=== PATIENT | female | born 1965 | race Caucasian/White ===

== ENCOUNTER 2017-12-07 21:07 | Inpatient (IN) | payer OTHER ==
[~2017-12-07] VITALS: Ht 165.1 cm; Wt 70.8 kg
[2017-12-07 20:00] VITALS: BP 111/54
[~2017-12-07 21:07] MED LIST: NORCO 5-325 TA1 EAC1 PO; NORCO 5-325 TA1 EACH PO; ZOFRAN ODT4 MG PO
[2017-12-07 21:09] VITALS: BP 167/85
[2017-12-07 21:40] LABS: ABSOLUTE BASOPHILS 0.1 thou/uL (0.0-0.2); ABSOLUTE EOSINOPHILS 0.3 thou/uL (0.0-0.7); ABSOLUTE LYMPHOCYTES 2.8 thou/uL (0.8-5.3); ABSOLUTE MONOCYTES 0.9 thou/uL (0.0-1.2); ABSOLUTE NEUTROPHILS 7.8 thou/uL (1.6-8.1); BASOPHILS 0.7 %; EOSINOPHILS 2.2 %; HEMATOCRIT 43.2 % (37.0-47.0); HEMOGLOBIN 14.2 gm/dL (12.0-15.0); LYMPHOCYTES 23.5 %; MCH 27.6 pg (26.0-34.0); MCHC 32.9 g/dL (28.0-37.0); MCV 83.7 fL (80.0-100.0); MONOCYTES 7.3 %; MPV 9.2 fl. (7.2-11.1); NUCLEATED RBCS 0 /100WBC; PLATELET COUNT* 427 thou/uL (150-400); POLYS 66.3 %; RBC 5.16 mil/uL (4.20-5.00); RDW-CV 15.8 % (10.5-14.5); WBC 11.7 thou/uL (4.0-11.0)
[2017-12-07 21:50] LABS: ANION GAP 9 mmol/L (7-16); BUN 11 mg/dL (7-18); CHLORIDE 106 mmol/L (98-107); CO2 25 mmol/L (21-32); CREATININE 0.7 mg/dL (0.6-1.3); GLUCOSE 102 mg/dL (70-99); POTASSIUM 3.5 mmol/L (3.5-5.1); SODIUM 140 mmol/L (136-145)
[2017-12-07 21:51] LABS: INR 1.1; PROTIME 10.4 Seconds (9.20-11.50)
[2017-12-07 21:56] LABS: ALBUMIN 3.6 g/dL (3.4-5.0); ALKALINE PHOSPHATASE 84 U/L (46-116); LIPASE 115 U/L (73-393); SGOT 15 U/L (15-37); SGPT 19 U/L (30-65); TOTAL BILIRUBIN 0.2 mg/dL (<0.1-1.0); TOTAL PROTEIN 7.3 g/dL (6.4-8.2); TROPONIN-I LEVEL <0.06 ng/mL (<0.06)
[2017-12-08 00:57] LABS: HEMATOCRIT 42.2 % (37.0-47.0); HEMOGLOBIN 13.7 gm/dL (12.0-15.0)
[2017-12-08 03:43] VITALS: BP 103/54
[2017-12-08 05:47] LABS: HEMATOCRIT 40.6 % (37.0-47.0); HEMOGLOBIN 13.3 gm/dL (12.0-15.0)
[2017-12-08 09:31] VITALS: BP 98/63
[2017-12-08 09:52] VITALS: BP 109/58
[2017-12-08 14:31] VITALS: BP 109/58
[2017-12-08 16:11] VITALS: BP 129/67
[2017-12-08 16:52] VITALS: BP 113/56
--- NOTE | 2017-12-08 17:28 | EKG ---
[place] [address] ELECTROCARDIOGRAM REPORT Name: JAYESH HERRERA Room: [address] ADM IN .R.#: [id number] Admission: 12/07/17 Attend Phys: Ra Victor Discharge: Date of : 61 Report #: [id number] THIS REPORT FOR: //name// [facility] ED Test Date: 2017-12-07 Test Time: 21:28:11 Pat Name: JAYESH HERRERA Department: Room: [facility] Gender: Market Gardener: WILLIE Green : 1965 Requested By: Sherita Dolan Order Number: [id number] MD: Oc Eisenberg Measurements Intervals [place] Rate: 92 P: 67 MD: 178 QRS: 57 QRSD: 72 T: 52 QT: 364 QTc: 451 Interpretive Statements Sinus rhythm Compared to ECG 06/18/2017 18:36:24 First degree AV block no longer present Electronically Signed On 12-08-2017 17:28:43 PLANT CYTOLOGIST by Oc Eisenberg [email or web address] <ELECTRONICALLY SIGNED> By: Oc Eisenberg MD, [facility] 12/08/17 1728 27 27 Oc Eisenberg MD, FACC /EPI
[2017-12-09 00:07] VITALS: BP 109/54
[2017-12-09 04:45] LABS: ABSOLUTE BASOPHILS 0.1 thou/uL (0.0-0.2); ABSOLUTE EOSINOPHILS 0.4 thou/uL (0.0-0.7); ABSOLUTE LYMPHOCYTES 3.1 thou/uL (0.8-5.3); ABSOLUTE MONOCYTES 0.7 thou/uL (0.0-1.2); ABSOLUTE NEUTROPHILS 6.6 thou/uL (1.6-8.1); BASOPHILS 1.2 %; EOSINOPHILS 3.7 %; HEMATOCRIT 40.4 % (37.0-47.0); LYMPHOCYTES 27.9 %; MCH 27.3 pg (26.0-34.0); MCHC 32.3 g/dL (28.0-37.0); MCV 84.6 fL (80.0-100.0); MONOCYTES 6.8 %; MPV 9.9 fl. (7.2-11.1); NUCLEATED RBCS 0 /100WBC; PLATELET COUNT* 400 thou/uL (150-400); POLYS 60.4 %; RBC 4.77 mil/uL (4.20-5.00); RDW-CV 15.7 % (10.5-14.5); WBC 10.9 thou/uL (4.0-11.0)
[2017-12-09 04:47] LABS: CALCIUM 8.7 mg/dL (8.5-10.1); CREATININE 0.7 mg/dL (0.6-1.3); POTASSIUM 3.8 mmol/L (3.5-5.1)
[2017-12-09 08:04] VITALS: BP 111/55
[2017-12-09 10:59] VITALS: BP 111/55
[2017-12-09] MEDS ORDERED: PROTONIX40 M1 PO (11:08)
[2017-12-09] MEDS ORDERED: TYLENOL325 MG PO (11:08)
[2017-12-09] MEDS ORDERED: COLACE100 MG PO (11:09)
--- NOTE | 2017-12-12 10:00 | CON ---
[address] [address] CONSULTATION Name: JAYESH HERRERA Room: [address] IN M.R.#: [id number] Admission: 12/07/17 Attend Phys: Ra Victor Discharge: 12/09/17 Date of : 61 Report #: [id number] THIS REPORT FOR: //name// CC: BRIE physician/PCP Pilo Daniel DATE OF SERVICE: 12/09/2017 HISTORY OF PRESENT ILLNESS: The patient is a 52-year-old female patient with history of smoking for almost 35 years. She smokes 10 cigarettes per day. She does not carry the diagnosis of COPD. She is not on any oxygen on inhalers at home. In fact, she is not on any medication at home. On Tuesday 2 days ago, she coughed up some blood and she went to the bathroom and she coughed up more blood, fresh looking according to her. When she came into the ER, she was evaluated for possible GI bleed, she was seen by GI and EGD did not show source of bleeding. She denied shortness of breath or wheezes. She denied any nasal discharge or obstruction. She denied any previous episodes of hemoptysis. She denied any nasal discharge or epistaxis. She denied any sick contact. She denied any bleeding from any other orifice. She denied taking any aspirin or any blood thinners at home. She saw the blood on Tuesday. Yesterday, she had no hemoptysis or bleeding at all. Today, this morning after breathing treatment, she coughed up blood-colored sputum in a cup, looks old and dry. When I saw it, she actually kept it in a cup at the bedside. She denied any fever or any diagnosis of lung disease. ALLERGIES: CODEINE, PENICILLIN, AND BEE STINGS. HOME MEDICATIONS: She is not on any home medication. PAST MEDICAL HISTORY: She does not have chronic medical history or medical condition. PAST SURGICAL HISTORY: Surgeries in the arm, rotator cuff, neck pain and . SOCIAL HISTORY: Does not drink alcohol excessively. She smokes half a pack per day for almost 35 years. FAMILY HISTORY: Reviewed with the patient, noncontributory. No similar cases. REVIEW OF SYSTEMS: She has no fever, no chills, no visual changes, no bleeding from any orifice, no ear pain, no dysphagia, no dysarthria, no nausea, no vomiting, no change in mood. The rest of the review [place] [address] CONSULTATION Name: JAYESH HERRERA Room: [address]#: [id number] Admission: 12/07/17 Attend Phys: Ra Victor Discharge: 12/09/17 Date of : 61 Report #: [id number] PHYSICAL EXAMINATION: VITAL SIGNS: On examination, she is on room air with saturation more than 90%, blood pressure 111/55, breathing 16 times a minute, pulse rate of 68, temperature 36.7. GENERAL: Awake, alert, oriented, not in pain, not in distress. HEENT: Head: Normocephalic, atraumatic. Pupils are equal, reactive to light. Extraocular movements are intact. NECK: Supple. No palpable lymph nodes. No palpable thyroid. Trachea is central. No postnasal drip and examination of the airway shows Mallampati of 2. CHEST: Good air movement bilaterally. No wheezes, no crackles. No tenderness. HEART: S1, S2. No murmur, no gallop. ABDOMEN: Benign, soft, lax, nontender. EXTREMITIES: Lower extremities, no edema, no calf tenderness. SKIN: Normal for age and race, no rash. PSYCHIATRIC: Mood and affect appropriate, good insight and judgment. NEUROLOGIC: Moving 4 extremities spontaneously. No focal weakness. LABORATORY DATA: Her hemoglobin was 13 today, white blood count 10.9, platelets 400, INR of 1.1, creatinine of 0.7, potassium 3.8. Her chest x-ray was unremarkable. CT of the chest did not show PE, showed some evidence of pneumonitis in the right apical lobe with some bi-apical scarring. No definite consolidation. IMPRESSION: 1. Hemoptysis. 2. Pneumonia. 3. Pulmonary infiltrate. 4. Suspected gastrointestinal bleed. The patient is clinically improving. No further episodes of hemoptysis. She has no shortness of breath. She has no PE, but she has pneumonia on CT scan. She is asking to go home. I did recommend for her to watch her in the hospital for another day or 2 to make sure that her symptoms are stable. Actually, she chose to watch herself at home and if her symptoms recur, she will come back. I would recommend treating her with antibiotics for the pneumonia and 1 week course of steroids with PPI to protect her stomach. Again, she chose to go home and monitor herself and she said if she has any further episodes, she will come back to the hospital. I mentioned to her she needs a followup CT scan in 8-10 weeks from now to make sure that the infiltrates in her lungs resolve[place] [address] CONSULTATION Name: GABBY HERRERAEDWIN Dykes Room: [address]#: [id number] Admission: 12/07/17 Attend Phys: Ra Victor Discharge: 12/09/17 Date of : 61 Report #: [id number] Thank you for the consult. <ELECTRONICALLY SIGNED> By: Monique Jackson MD 12/12/17 1000 0937 1021Dmagno Jackson MD /nt
--- NOTE | 2017-12-28 16:13 | CON ---
[address] [address] CONSULTATION Name: GABBY HERRERAEDWIN Dykes Room: [address] IN .R.#: [id number] Admission: 12/07/17 Attend Phys: Ra Victor Discharge: 12/09/17 Date of : 61 Report #: [id number] THIS REPORT FOR: //name// CC: BRIE physician/PCP Pilo Daniel DATE OF SERVICE: 12/08/2017 REASON FOR CONSULTATION: Upper GI bleed. HISTORY OF PRESENT ILLNESS: This is a 52-year-old female who apparently is pretty healthy and does not take any regular meds at home. The patient reports that she felt nauseous and was vomiting and she saw blood in her emesis. She initially discounted the event, but since reoccurred, this prompted her to come back to the Emergency Room. The patient denies any melena or hematochezia. Her last bowel movement was yesterday, which was normal. She also denies any chronic use of NSAIDs. PAST SURGICAL HISTORY: Significant for history of rotator cuff surgery, , arm surgery. ALLERGIES: Significant to CODEINE AND PENICILLIN. MEDICATIONS: Please refer to hospital MAR. SOCIAL HISTORY: The patient smokes cigarettes and reports that she smoked half a pack of cigarette per day. She denies any alcohol use. FAMILY HISTORY: Negative for GI malignancy. PHYSICAL EXAMINATION: VITAL SIGNS: Reveals blood pressure of 109/58, respirations 14, pulse 78, temperature 98. LUNGS: Clear. CARDIOVASCULAR: Regular. ABDOMEN: Soft, nontender, nondistended. Bowel sounds are positive. LABORATORY DATA: Reveal sodium of 140, potassium 3.5, BUN is 11, creatinine 0.7, glucose 102. Liver function tests all within normal limits. INR is 1.1. WBC is 11.7 with hemoglobin of 13.3 and platelets of 427. IMAGING: Portable chest x-ray was obtained, which appeared normal. ASSESSMENT AND PLAN: The patient with acute upper gastrointestinal bleed with normal hemoglobin. We will go ahead and perform [place] [address] CONSULTATION Name: JAYESH HERRERA Room: [address] [facility].#: [id number] Admission: 12/07/17 Attend Phys: Ra Victor Discharge: 12/09/17 Date of : 61 Report #: [id number] further recommendation once the scope is performed. The patient is agreeable with plan. <ELECTRONICALLY SIGNED> By: Madelyn Bonner MD 12/28/17 1613 1517 2257Madelyn Bonner MD /nt
== END 2017-12-09 11:50 | disposition home or self-care (01) | DRG 178 ==
LOC: M.ERS 21:07 → M.ORTHSURG 22:23 → M.TBA-ER 22:23 → M.2W 12-08 10:10 → M.ORTHSURG 12-08 13:58
PROVIDERS: Emergency Medicine; Internal Medicine; ADMIT Internal Medicine
PROC: 0DJ08ZZ Inspection of Upper Intestinal Tract, Via Natural or Artificial Opening Endoscopic (ICD-10-PCS; principal; 2017-12-08)
DX: J15.6 Pneumonia due to other Gram-negative bacteria (principal); R04.2 Hemoptysis; K44.9 Diaphragmatic hernia without obstruction or gangrene; F17.210 Nicotine dependence, cigarettes, uncomplicated; Z88.6 Allergy status to analgesic agent; Z88.0 Allergy status to penicillin; Z91.030 Bee allergy status; Z71.6 Tobacco abuse counseling

== ENCOUNTER 2018-05-03 19:02 | Emergency (ER) | payer OTHER ==
[~2018-05-03] VITALS: Ht 157.5 cm; Wt 69.0 kg
[~2018-05-03 19:02] MED LIST changes: +COLACE100 MG PO; +PROTONIX40 M1 PO; +TYLENOL325 MG PO
[2018-05-03] MEDS ORDERED: TRAMADOL 50 MG50 MG PO (19:23)
[2018-05-03] MEDS ORDERED: IBUPROFEN 600600 M1 PO (19:23)
[2018-05-03] MEDS ORDERED: CLEOCIN HCL150 MG PO (19:23)
[2018-05-03 19:32] VITALS: BP 139/80
== END 2018-05-03 19:54 | disposition home or self-care (01) ==
LOC: M.ERS 19:02
DX: K04.7 Periapical abscess without sinus (principal); F17.210 Nicotine dependence, cigarettes, uncomplicated; Z98.890 Other specified postprocedural states; Z91.030 Bee allergy status; Z88.5 Allergy status to narcotic agent; Z88.0 Allergy status to penicillin

== ENCOUNTER 2019-08-06 11:40 | Emergency (ER) | payer BC ==
[~2019-08-06] VITALS: Ht 165.1 cm; Wt 63.5 kg
[~2019-08-06 11:40] MED LIST changes: +CLEOCIN HCL150 MG PO; +IBUPROFEN 600600 M1 PO; +TRAMADOL 50 MG50 MG PO
[2019-08-06 12:05] LABS: ABSOLUTE BASOPHILS 0.1 thou/uL (0.0-0.2); ABSOLUTE EOSINOPHILS 0.2 thou/uL (0.0-0.7); ABSOLUTE LYMPHOCYTES 2.4 thou/uL (0.8-5.3); ABSOLUTE MONOCYTES 0.6 thou/uL (0.0-1.2); ABSOLUTE NEUTROPHILS 5.6 thou/uL (1.6-8.1); BASOPHILS 1.2 %; EOSINOPHILS 2.6 %; HEMATOCRIT 46.3 % (37.0-47.0); HEMOGLOBIN 15.2 gm/dL (12.0-15.0); LYMPHOCYTES 26.7 %; MCH 26.8 pg (26.0-34.0); MCHC 32.7 g/dL (28.0-37.0); MCV 81.9 fL (80.0-100.0); MONOCYTES 7.2 %; NUCLEATED RBCS 0 /100WBC; PLATELET COUNT* 475 thou/uL (150-400); POLYS 62.3 %; RBC 5.65 mil/uL (4.20-5.00); RDW-CV 17.1 % (10.5-14.5)
[2019-08-06 12:15] LABS: BE -0.8 mmol/L (-2 to +3); PCO2 30.4 mmHg (35.0-45.0)
[2019-08-06 12:15] LABS: ANION GAP 9 mmol/L (7-16); BUN 19 mg/dL (7-18); CALCIUM 8.7 mg/dL (8.5-10.1); CHLORIDE 106 mmol/L (98-107); CO2 23 mmol/L (21-32); CREATININE 0.8 mg/dL (0.6-1.3); GLUCOSE 80 mg/dL (70-99); POTASSIUM 4.1 mmol/L (3.5-5.1); SODIUM 138 mmol/L (136-145)
[2019-08-06 12:22] LABS: PO2 < 23.5 mmHg (75.0-100.0)
[2019-08-06 12:30] LABS: ALBUMIN 3.2 g/dL (3.4-5.0); ALKALINE PHOSPHATASE 88 U/L (46-116); LIPASE 154 U/L (73-393); MAGNESIUM 1.8 mg/dL (1.8-2.4); NT-PRO BRAIN NAT PEPTIDE 85 pg/mL (<300); SGOT 13 U/L (15-37); SGPT 21 U/L (30-65); TOTAL BILIRUBIN 0.1 mg/dL (<0.1-1.0); TOTAL PROTEIN 6.9 g/dL (6.4-8.2); TROPONIN-I LEVEL <0.06 ng/mL (<0.06)
[2019-08-06] MEDS ORDERED: VENTOLIN HFA 1818 GM INH (13:20)
[2019-08-06] MEDS ORDERED: AZITHROMYCIN 2250 MG PO (13:20)
[2019-08-06] MEDS ORDERED: MEDROL DOSPAK21 TA1 PO (13:20)
[2019-08-06 13:30] VITALS: BP 108/54
--- NOTE | 2019-08-06 15:58 | EKG ---
[place] [address] ELECTROCARDIOGRAM REPORT Name: JAYESH HERRERA Room: [facility]#: [id number] Admission: 08/06/19 Attend Phys: Discharge: 08/06/19 Date of : 61 Report #: [id number] THIS REPORT FOR: //name// 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
--- NOTE | 2019-08-06 15:58 | EKG ---
[place] [address] ELECTROCARDIOGRAM REPORT Name: JAYESH HERRERA Room: [facility]#: [id number] Admission: 08/06/19 Attend Phys: Discharge: 08/06/19 Date of : 61 Report #: [id number] THIS REPORT FOR: //name// [facility] ED Test Date: 2019-08-06 Test Time: 12:41:22 Pat Name: JAYESH HERRERA Department: Room: Gender: F Advertising Solicitor: FCO : 1965 Requested By: Darryl Morales Order Number: [id number] MD: Grover Wong Measurements Intervals [place] Rate: 86 P: 74 [place]: 189 QRS: 61 QRSD: 71 T: 43 QT: 369 QTc: 442 Interpretive Statements Sinus rhythm Baseline wander in lead(s) V5,V6 Compared to ECG 12/07/2017 21:28:11 No significant changes Electronically Signed On 08-06-2019 15:58:23 CDT by Grover Wong [email or web address] <ELECTRONICALLY SIGNED> By: Grover Wong MD, [facility] 08/06/19 1558 1241 1241 Grover Wong MD, FACC /EPI
== END 2019-08-06 13:34 | disposition home or self-care (01) ==
LOC: M.ERS 11:40
PROVIDERS: Emergency Medicine
DX: J44.9 Chronic obstructive pulmonary disease, unspecified (principal); F17.210 Nicotine dependence, cigarettes, uncomplicated; Z91.030 Bee allergy status; Z88.5 Allergy status to narcotic agent; Z88.0 Allergy status to penicillin; Z98.890 Other specified postprocedural states

== ENCOUNTER 2019-12-10 13:19 | Emergency (ER) | payer BC ==
[~2019-12-10] VITALS: Ht 165.1 cm; Wt 63.5 kg
[~2019-12-10 13:19] MED LIST changes: +AZITHROMYCIN 2250 MG PO; +MEDROL DOSPAK21 TA1 PO; +VENTOLIN HFA 1818 GM INH
[2019-12-10 14:17] LABS: ABSOLUTE BASOPHILS 0.2 thou/uL (0.0-0.2); ABSOLUTE EOSINOPHILS 0.2 thou/uL (0.0-0.7); ABSOLUTE LYMPHOCYTES 2.9 thou/uL (0.8-5.3); ABSOLUTE MONOCYTES 1.1 thou/uL (0.0-1.2); ABSOLUTE NEUTROPHILS 10.1 thou/uL (1.6-8.1); BASOPHILS 1.2 %; EOSINOPHILS 1.6 %; HEMOGLOBIN 17.5 gm/dL (12.0-15.0); LYMPHOCYTES 19.8 %; MCH 27.2 pg (26.0-34.0); MCHC 33.6 g/dL (28.0-37.0); MCV 80.9 fL (80.0-100.0); MONOCYTES 7.6 %; MPV 8.9 fl. (7.2-11.1); NUCLEATED RBCS 0 /100WBC; PLATELET COUNT* 593 thou/uL (150-400); POLYS 69.8 %; RBC 6.43 mil/uL (4.20-5.00); RDW-CV 16.8 % (10.5-14.5); WBC 14.5 thou/uL (4.0-11.0)
[2019-12-10 14:20] LABS: URINE BILIRUBIN NEGATIVE (Negative); URINE BLOOD TRACE (Negative); URINE CLARITY CLEAR; URINE COLOR YELLOW; URINE GLUCOSE-RANDOM NEGATIVE (Negative); URINE KETONES NEGATIVE (Negative); URINE LEUKOCYTES-REFLEX NEGATIVE (Negative); URINE NITRITE-REFLEX NEGATIVE (Negative); URINE PROTEIN NEGATIVE (Negative); URINE SPECIFIC GRAVITY 1.025 (1.005-1.030); URINE UROBILINOGEN 0.2 E.U./dl (0.2-1.0)
[2019-12-10 14:27] LABS: CALCIUM 9.4 mg/dL (8.5-10.1); CREATININE 0.9 mg/dL (0.6-1.3); POTASSIUM 4.9 mmol/L (3.5-5.1)
[2019-12-10 14:41] LABS: ALBUMIN 3.7 g/dL (3.4-5.0); TOTAL BILIRUBIN 0.4 mg/dL (<0.1-1.0); TOTAL PROTEIN 8.6 g/dL (6.4-8.2)
[2019-12-10] MEDS ORDERED: ONDANSETRON HCL4 M2 PO (15:21)
[2019-12-10] MEDS ORDERED: BENTYL 20 MG TA20 M1 PO (15:21)
[2019-12-10] MEDS ORDERED: LOMOTIL TABLET1 EACH PO (15:21)
[2019-12-10 15:35] VITALS: BP 117/82
--- NOTE | 2019-12-11 14:30 | EKG ---
[place] [address] ELECTROCARDIOGRAM REPORT Name: JAYESH HERRERA Room: [facility]#: [id number] Admission: 12/10/19 Attend Phys: Discharge: 12/10/19 Date of : 61 Report #: [id number] THIS REPORT FOR: //name// [facility] ED Test Date: 2019-12-10 Test Time: 14:05:53 Pat Name: JAYESH HERRERA Department: Room: Gender: F Tyre Fitter: MS : 1965 Requested By: Katia Hidalgo Order Number: [id number] MD: Oc Eisenberg Measurements Intervals [place] Rate: 93 P: 68 IN: 180 QRS: 42 QRSD: 67 T: 54 QT: 345 QTc: 430 Interpretive Statements Sinus rhythm Possible anteroseptal infarct, old Compared to ECG 08/06/2019 12:41:22 Possible myocardial infarct finding now present Electronically Signed On 12-11-2019 14:29:59 PROCESS OWNER by Oc Eisenberg [email or web address] <ELECTRONICALLY SIGNED> By: Oc Eisenberg MD, [facility] 12/11/19 1429 1405 1405 Oc Eisenberg MD, FACC /EPI
== END 2019-12-10 15:37 | disposition home or self-care (01) ==
LOC: M.ERS 13:19
PROVIDERS: Nurse Practitioner Family
DX: K52.9 Noninfective gastroenteritis and colitis, unspecified (principal); F17.210 Nicotine dependence, cigarettes, uncomplicated; Z88.0 Allergy status to penicillin; Z88.5 Allergy status to narcotic agent; Z91.030 Bee allergy status; Z98.890 Other specified postprocedural states

== ENCOUNTER 2020-05-17 01:14 | Emergency (ER) | payer BC ==
[~2020-05-17] VITALS: Ht 165.1 cm; Wt 65.8 kg
[~2020-05-17 01:14] MED LIST changes: +BENTYL 20 MG TA20 M1 PO; +LOMOTIL TABLET1 EACH PO; +ONDANSETRON HCL4 M2 PO
[2020-05-17] MEDS ORDERED: PERIDEX 0.12%473 M1 SWISH&SPIT (01:50)
[2020-05-17] MEDS ORDERED: DOXYCYCLINE 10100 M2 PO (01:50)
[2020-05-17] MEDS ORDERED: HYDROCODON-ACE1 EAC7 PO (01:50)
[2020-05-17 02:29] VITALS: BP 170/87
== END 2020-05-17 02:30 | disposition home or self-care (01) ==
LOC: M.ERS 01:14
DX: K05.00 Acute gingivitis, plaque induced (principal); K02.9 Dental caries, unspecified; F17.210 Nicotine dependence, cigarettes, uncomplicated; Z98.890 Other specified postprocedural states; Z91.030 Bee allergy status; Z88.0 Allergy status to penicillin; Z88.6 Allergy status to analgesic agent